=== PATIENT | female | born 1960 | race Caucasian/White ===

== ENCOUNTER 2021-10-03 08:15 | Outpatient (RCR) | payer OTHER, SELFPAY | END 2022-08-28 08:29 | disposition home or self-care (01) | PROVIDERS: Visit Provider Orthopaedic Surgery | DX: M25.511 Pain in right shoulder (principal); Z96.611 Presence of right artificial shoulder joint; Z74.09 Other reduced mobility; Z51.89 Encounter for other specified aftercare | CPT/HCPCS: 97032; 97110; 97140; 97161 ==

== ENCOUNTER 2021-10-08 14:11 | Outpatient (CLI) | payer OTHER, SELFPAY ==
[2021-10-08 21:17] LABS: Chloride* 102 mmol/L (96-114); Sodium* 140 mmol/L (135-149)
[2021-10-08 21:18] LABS: Potassium* 4.4 mmol/L (3.6-5.1)
[2021-10-08 21:20] LABS: Carbon Dioxide* 24 mmol/L (20-32); Estimated Glomerular Filt Rate 64 ml/min
[2021-10-08 21:21] LABS: Blood Urea Nitrogen* 24 mg/dL (7-30); Calcium* 10.4 mg/dL (8.4-10.6); Glucose* 121 mg/dL (60-115)
== END 2021-10-08 14:12 | disposition home or self-care (01) ==
LOC: FRMREF 14:12
PROVIDERS: PCP Family Medicine; Visit Provider Family Medicine
DX: Z01.818 Encounter for other preprocedural examination (principal); I10 Essential (primary) hypertension
CPT/HCPCS: 80048

== ENCOUNTER 2021-10-17 06:00 | Day surgery (SDC) | payer OTHER, SELFPAY ==
[2021-10-17 06:32] VITALS: BMI 59.1
[2021-10-17 06:45] VITALS: BP 144/97; PULSE 89; RESP 16; TEMP 36.2; O2SAT 97
[2021-10-17] MEDS: SODIUM CHLORIDE 0.9 % (FLUSH) 10 ML SYRINGE IVF (06:50)
[2021-10-17] MEDS: LACTATED RINGERS 1000 ML 1,000 ML 100 ML IV (06:50)
[2021-10-17] MEDS: BUPIVACAINE 0.5% 30 ML INJECTION (07:00)
[2021-10-17] MEDS: ETHYL CHLORIDE 1 APPLICATION 1 APPLIC TOPICAL (07:00)
--- NOTE | 2021-10-17 07:13 | SUR.PREOP ---
Patient tearful in room. It's the waiting.. Declines having (Agustin) brought back to room. Railroad Signal Technician provided cool washcloth for patient's neck and Calming aroma therapy patch. Call light within reach. Denies any other needs at this time.
--- NOTE | 2021-10-17 08:14 | PM.ORPRC ---
Procedure Note Date of procedure: 10/17/21 Procedure: PREOPERATIVE DIAGNOSES: 1. Left de Quervain tenosynovitis-recalcitrant to nonoperative management 2. Left wrist ganglion cyst/benign cyst POSTOPERATIVE DIAGNOSES: 1. Left de Quervain tenosynovitis-recalcitrant to nonoperative management NAME OF OPERATION: 1. Left de Quervain open 1st dorsal extensor compartment release with tenosynovectomy SURGEON: Saul Jaimes MD VOCATIONAL TRAINING DIRECTOR: Bob Arguelles PA-C - Of note, an ob gyn physician assistant was critical for this case to aide in patient positioning, limb manipulation, tissue retraction, closure, & splinting. ANESTHESIA: Local anesthetic (via 50:50 mixture of 0.5% bupivacaine plain and 1% lidocaine with epi)-10 mL total plus MAC EBL: Less than 5 mL IMPLANTS: None. TOURNIQUET: None INDICATIONS: The patient is a pleasant, 60-year-old female who has battled left de Quervain tenosynovitis for a number of months. In addition, she has noticed a swelling over the radial side of the left wrist. This is suspicious of a ganglion cyst. They have tried and failed nonoperative management including cortisone injection, bracing, medicines, ice, activity modification, etc. Therefore, surgery was indicated. FINDINGS: Abundant tenosynovitis along the left upper extremity 1st dorsal extensor compartments. Thickening to the 1st compartment sheath. A sub sheath between the APL and EPB was encountered. No ganglion cyst or other benign cystic structure was encountered. Rather, there was extremely thickened 1st dorsal extensor compartment sheath. This was approximately 6 mm thick and felt to likely be the source of the palpable nodule/cyst the patient may have felt. PROCEDURE: Following a thorough discussion of risks, benefits, and alternatives, consent was obtained and the operative extremity was marked. The patient was brought to the operating room and placed supine on the operating table. Induction of anesthesia was achieved. Appropriate time out was performed identifying proper patient, site and procedure. No antibiotics were administered preoperatively as typically a de Quervain release would be done under local anesthetic only, plus the patient's numerous allergies made choosing a particular antibiotic challenging. The left upper extremity was prepped and draped in the appropriate sterile fashion using ChloraPrep prep. A transverse incision was made just proximal to the radial styloid. Sharp incision through skin and blunt dissection through subcutaneous tissue allowed us to identify and protect the crossing neurologic structures including the superficial branch of the radial nerve. The 1st dorsal extensor compartment was released on the more dorsal aspect. EPL and APB tendons were found to be within their own compartments. These were completely released and the tenosynovitis was resected along the tendons. The intervening septum was resected. In addition, the thickened portion of the 1st dorsal extensor compartment was also resected with a tenotomy scissors. No further cystic structure was encountered. We both palpated and had direct visual inspection and did not identify any further cystic structure. At this stage, the wound was thoroughly irrigated with normal saline. Closure performed with 3-0 Vicryl subcutaneous and 4-0 Monocryl for subcuticular closure. Dressings were applied. The patient was awoken from anesthesia and transferred to PACU in stable condition. PLAN: 1. Elevate operative extremity. 2. Ice, acetominphen, ibuprofen, and/or percocet PRN. 3. Follow up with PA visit in 7-10 days for wound check and OT initiation PRN.
--- NOTE | 2021-10-17 08:39 | W.ANESCHARGE ---
Anesthesia Charges Start Date/Time Anesthesia Start Date: 10/17/21 Anesthesia Start Time: 07:41 Stop Date/Time Anesthesia Stop Date: 10/17/21 Anesthesia Stop Time: 08:40 Summary Emergency: No
[2021-10-17 08:40] VITALS: BP 151/93; PULSE 81; RESP 14; TEMP 36.1; O2SAT 95
[2021-10-17 09:00] VITALS: BP 132/84; PULSE 69; RESP 14; O2SAT 98
[2021-10-17 09:15] VITALS: BP 135/65; PULSE 74; RESP 16; O2SAT 98
== END 2021-10-17 09:20 | disposition home or self-care (01) ==
PROVIDERS: PCP Family Medicine; Visit Provider Orthopaedic Surgery Sports Medicine
PROC: (CPT 25000; principal; 2021-10-17 07:30)
DX: M65.4 Radial styloid tenosynovitis [de Quervain] (principal); M67.432 Ganglion, left wrist
CPT/HCPCS: 25116; 1810; J2250; J2405; J2704; J3010; J3490; J7120

== ENCOUNTER 2022-01-08 07:26 | Outpatient (CLI) | payer OTHER, SELFPAY | END 2022-01-08 07:27 | disposition home or self-care (01) | LOC: FRMREF 01-09 10:47 | PROVIDERS: PCP Family Medicine; Visit Provider Family Medicine | DX: N39.0 Urinary tract infection, site not specified (principal); N30.90 Cystitis, unspecified without hematuria; B37.31 Acute candidiasis of vulva and vagina | CPT/HCPCS: 87086; 87186 ==

== ENCOUNTER 2022-04-18 11:13 | Outpatient (CLI) | payer BC, SELFPAY | END 2022-04-18 11:14 | disposition home or self-care (01) | LOC: NFLDREF 04-20 12:27 | PROVIDERS: PCP Family Medicine; Referring Provider Family Medicine; Visit Provider Family Medicine | DX: R82.90 Unspecified abnormal findings in urine (principal); F43.21 Adjustment disorder with depressed mood; E11.9 Type 2 diabetes mellitus without complications | CPT/HCPCS: 87086; 87186 ==

== ENCOUNTER 2022-05-09 07:02 | Outpatient (CLI) | payer BC, SELFPAY | END 2022-05-09 07:03 | disposition home or self-care (01) | LOC: NFLDREF 05-10 11:05 | PROVIDERS: PCP Family Medicine; Referring Provider Family Medicine; Visit Provider Physician Assistant Medical | DX: R30.0 Dysuria (principal); N39.0 Urinary tract infection, site not specified | CPT/HCPCS: 87086; 87186 ==

== ENCOUNTER 2022-07-24 07:00 | Outpatient (CLI) | payer BC, SELFPAY ==
--- NOTE | 2022-07-24 07:15 | CRLHL7_ITS ---
For Patients: As a result of the Cures Act, medical imaging exams and procedure reports are released immediately into your electronic medical record. You may view this report before your referring provider. If you have questions, please contact your health care provider. INDICATION: non toxic single thyroid nodule COMPARISON: 05/09/2021 TECHNIQUE: Brooke scale and color Doppler images were acquired of the thyroid gland. FINDINGS: The right thyroid lobe measures 6.1 x 2.1 x 3.3 cm. The left thyroid lobe measures 4.7 x 1.7 x 1.9 cm. The isthmus measures 4 millimeters. Thyroid echotexture is heterogeneous. No abnormal vascularity. Circumscribed heterogeneously hypoechoic nodule right thyroid lobe is similar measuring 4.2 x 2.1 x 3.1 cm, previously measuring 3.4 x 2.0 x 3.0 cm. Similar left-sided nodules are present including a hypoechoic nodule measuring 2.1 x 1.0 x 1.6 cm, previously measuring 1.6 x 0.9 x 1.7 cm. A 2nd hypoechoic nodule within the left thyroid lobe is unchanged measuring 1.1 x 1.0 x 1.1 cm, previously measuring 1.1 x 0.9 x 1.0 cm. Near isoechoic nodule left thyroid lobe also noted measuring 1.6 x 0.8 x 1.3 cm. IMPRESSION: Multinodular goiter, similar to the prior study. Bilateral nodules are similar. Dictated by Satinder Matta MD @ 07/24/2022 9:38:30 AM (Electronically Signed)
== END 2022-07-24 07:01 | disposition home or self-care (01) ==
LOC: US 07:00
PROVIDERS: PCP Family Medicine; Visit Provider Surgery
DX: E04.1 Nontoxic single thyroid nodule (principal)
CPT/HCPCS: 76536

== ENCOUNTER 2024-12-23 19:02 | Emergency (ER) | payer BC, SELFPAY ==
--- OUTSIDE RECORDS SUMMARY | 2024-12-23 19:06 | XMS_ITS | Clinical Summary ---
Author Organization [facility] Address [address] [place] [id number] Care Team Providers Care Automotive Artist Name Role Phone Pcp, No Primary Care Provider Unavailabl e Allergies Active Allergy Reactions Criticality Noted Date Comments Adhesive Tape-Silicones Contact Dermatitis 04/10 Morphine Vomiting 02/11/2013 Unlisted Allergen (Include Detail In Comments) Rash,Edema 04/23/2018 Nickel Penicillins Other - Describe In Comment Field 02/11/2013 Palpitations Medications losartan (COZAAR) 50 mg tablet Take 1 tablet by mouth once daily. 03/19/2018 Active meloxicam 15 mg tablet Take 1 tablet by mouth once daily. 04/14/2018 Active tiZANidine (ZANAFLEX) 2 mg tabletIndication s:Midline low back pain without sciatica, unspecified chronicity 1 tab up to three times daily, use mostly at night for muscle relaxer. May make you drowsy. 30 tablet 1 04/23/2018 Active VENTOLIN HFA 90 mcg/actuation inhaler 06/23/2018 Active clindamycin (CLEOCIN) 300 mg capsule 04/29/2018 Active predniSONE (DELTASONE) 20 mg tablet 07/07/2018 Active Active Problems Problem Noted Date Diagnosed Date Essential hypertension 04/23/2018 CARPAL TUNNEL - SYNDROME/NOS 02/21/2000 GANGLION, TENDON SHEATH PAIN IN JOINT, HAND CELLULITIS/ABSCESS, FACE PAIN IN JOINT, ANKLE/FOOT RASH Immunizations Immunization Administration Dates Next Due Influenza A (H1N1), Inactivated 12/26/2008 Influenza, IIV3 (Age >=3 years) 11/12/2012 Influenza, IIV4 (=>6mos) MDV 12/19/2016 Tdap 04/02/2017 Family History Medical History Relation Name Comments Genetic Other 1 Heart~Cancer~hi gh blood pressure~Diabetes Genetic Other 2 Heart~Cancer~Hi gh blood pressure~Diabetes Genetic Other 3 Heart~Cancer~Hi gh blood pressure~Diabetes~thyroid, arthritis,glaucoma grandmother Genetic Other 4 Hear- Mother [place] Dt~Svoeyl-Odtbph-fpjflv, Father-Hogkins disease, Mother- skin cancer(melanoma?)~High blood pressure- Brother~Diabetes-Sister~thyroid, arthritis,glaucoma grandmother Relation Name Status Comments Other 1 Other 2 Other 3 Other 4 Social History Tobacco Use Types Packs/Day Years Used Date Smoking Tobacco: Never Smokeless Tobacco: Never Comments No Sex and Gender Information Value Date Recorded Sex Assigned at Not on file Legal Sex Female 6:10 AM SHOW CARD WRITER Gender Identity Not on file Sexual Orientation Not on file Obstetrics History Last Filed Vital Signs Vital Sign Reading Time Taken Comments Blood Pressure 128/80 04/23/2018 12:29 PM CDT Pulse 78 04/23/2018 12:29 PM CDT Temperature 37.1 C (98.7 F) 04/23/2018 12:29 PM CDT Respiratory Rate 18 04/23/2018 12:29 PM CDT Oxygen Saturation 97% 02/11/2013 8:04 PM SHOW CARD WRITER Inhaled Oxygen Concentration - - Weight 163.3 kg (360 lb) 07/17/2018 8:42 AM CDT Height 158.8 cm (5' 2.5) 07/17/2018 8:42 AM CDT Body Mass Index 64.8 07/17/2018 8:42 AM CDT Plan of Treatment Upcoming Encounters Date Type Department Care Team (Late st Contact Info) Description 12/30/2024 3:00 PM SHOW CARD WRITER Nurse/Clinic Staff Only [facility] [address] [phone] Suly Moore, RN [address] [address] 12/30/2024 3:30 PM SHOW CARD WRITER Office Visit [facility] [address] [phone] [place] [facility] [address] [address] Health Maintenance Due Date Last Done Comments Depression screening for age 12+ 1971 HIV for age 15-65 12/24/1974 Hepatitis C screening for ag e 18-79 12/24/1977 Pneumococcal series for age 50+ (1 of 2 - PCV) 12/24/1978 Pap test for age 21-65 11/20/2002 11/21/1999 Colonoscopy through age 75 12/24/2004 Lipids for age 45-75 12/24/2004 Mammogram for age 45-75 12/24/2004 Zoster (shingles) series for age 50+ (1 of 2) 12/24/2009 BMI (ht and wt on same day) for age 18+ 07/18/2019 07/17/2018, 07/08/2018, 04/23/2018 Influenza Vaccine (#1) 2024 7, 11/12/2012 Tetanus booster 04/02/2027 04/02/2017 RSV vaccine for adults or (1 - 1-dose 75+ series) 12/24/2034 Hepatitis B series for 19+ Aged Out N o longer eligible based on patient's age to complete this topic Procedures Procedure Name Priority Date/Time Associated Diagnosis Comments HPV HIGH RISK Routine 11/21/1999 4:58 PM CDT from Last 3 Months or Most Recently Relevant to Health Maintenance Results * HPV THIN PREP (11/21/1999 4:58 PM CDT) HPV RESULTS WNL 11/21/1999 4:58 PM CDT Narrative 07/23/2003 12:02 PM CDT Ordered by an unspecified provider. us Other Clinical Staff MICROBIOLOGY Final Resul t from Last 3 Months or Most Recently Relevant to Health Maintenance Insurance [facility] [employer] * Guarantor: [employer] Account Type Relation to Patient Date of Phone Billing Address [employer] [facility] [address] [place] [address] Care Teams Automotive Artist Relationship Specialty Start Date End Date Pcp, No . PCP - General 09/25/09
--- OUTSIDE RECORDS SUMMARY | 2024-12-23 19:06 | XMS_ITS | Clinical Summary ---
Author Organization [facility] Address [address] [place] [address] Care Team Providers Care Anaesthesiologist Name Role Phone Mohan Jurado Primary Care Provider Allergies Active Allergy Reactions Criticality Noted Date Comments Adhesive Tape Blisters 03/24/2014 PAPER TAPE IS OK Amoxicillin Unknown 03/24/2014 Erythromycin 03/24/2014 Nickel Rash Low 03/24/2014 Penicillins Palpitations,Hives,D ifficult y breathing High 05/10/2011 Vancomycin 03/24/2014 Medications LISINOPRIL PO Take 20 mg by mouth daily Active MELOXICAM PO Take 15 mg by mouth daily Active multivitamin, therapeutic with minerals (MULTI-VITAMIN) TABS Take 1 tablet by mouth daily Active albuterol (PROAIR HFA, PROVENTIL HFA, VENTOLIN HFA) 108 (90 BASE) MCG/ACT inhalerIndicati ons:COUGH Inhale 2 puffs into the lungs every 6 hours Active acetaminophen (TYLENOL) 325 MG tabletIndicatio ns:Posterior tibial tendon dysfunction Take 2 tablets (650 mg) by mouth every 4 hours as needed for fever or other (mild pain) 100 tablet 0 5 Active oxyCODONE (ROXICODONE) 5 MG immediate release tabletIndicatio ns:Posterior tibial tendon dysfunction Take 1-3 tablets (5-15 mg) by mouth every 3 hours as needed for pain or other (Moderate to Severe) 75 tablet 0 5 Active Additional Information Patient not taking.Reported on 08/25/2019 senna-docusate (SENOKOT-S;FABBY COLACE) 8.6-50 MG per tabletIndicatio ns:Posterior tibial tendon dysfunction Take 2 tablets by mouth daily as needed for constipation Take while on oral narcotics to prevent or treat constipation. 30 tablet 0 5 Active Additional Information Patient not taking.Reported on 08/25/2019 hydrOXYzine (ATARAX) 25 MG tabletIndicatio ns:Posterior tibial tendon dysfunction Take 1 tablet (25 mg) by mouth every 6 hours as needed for itching (and nausea, adjuvant pain control) 40 tablet 0 5 Active Additional Information Patient not taking.Reported on 08/25/2019 aspirin EC 325 MG tabletIndicatio ns:Posterior tibial tendon dysfunction Take 1 tablet (325 mg) by mouth daily 30 tablet 3 5 Active Additional Information Patient not taking.Reported on 08/25/2019 montelukast (SINGULAIR) 10 MG tablet Take 10 mg by mouth At Bedtime Active Family History Medical History Relation Comments Cerebrovascular Disease Brother 1 No Known Problems Brother 2 Lymphoma Father Cerebrovascular Disease Maternal Grandmother Asthma Mother Heart Failure Mother Myocardial Infarction Mother Skin Cancer Mother Thyroid Cancer Mother Diabetes Sister 1 Myocardial Infarction Sister 1 Thyroid Disease Sister 1 Breast Cancer Sister 2 Thyroid Disease Sister 2 Thyroid Disease Sister 3 Thyroid Disease Sister 4 Relation Status Comments Brother 1 Brother 2 Father Maternal Grandmother Mother Sister 1 Sister 2 Sister 3 Sister 4 Social History Tobacco Use Types Packs/Day Years Used Date Smoking Tobacco: Never Smokeless Tobacco: Never Alcohol Use Standard Drinks/Week Comments Yes 0 (1 standard drink = 0.6 oz pur e alcohol) RARE - 3 drinks yearly Adolescent Education Answer Date Record ed Getting School Help Needed Not on file 11/11 Comments No Sex and Gender Information Value Date Recorded Sex Assigned at Not on file Legal Sex Female 3:33 AM MATERIALS MGMT TECH Gender Identity Not on file Sexual Orientation Not on file Last Filed Vital Signs Vital Sign Reading Time Taken Comments Blood Pressure 132/78 08/25/2019 9:50 AM CDT Pulse 84 08/25/2019 9:50 AM CDT Temperature 36.8 C (98.2 F) 03/25/2014 1:22 PM MATERIALS MGMT TECH Respiratory Rate 16 03/25/2014 4:45 PM MATERIALS MGMT TECH Oxygen Saturation 99% 03/25/2014 4:45 PM MATERIALS MGMT TECH Inhaled Oxygen Concentration - - Weight 169.1 kg (372 lb 11.2 oz) 08/25/2019 9:50 AM CDT Height 160 cm (5' 3) 08/25/2019 9:50 AM CDT Body Mass Index 66.02 08/25/2019 9:50 AM CDT Plan of Treatment Not on file Insurance [facility] [employer] INSURANCE [place] [id number] Care Teams Anaesthesiologist Relationship Specialty Start Date End Date Mohan Jurado [address] [address] PCP - General Family Practice 03/04/14
--- NOTE | 2024-12-23 19:24 | CRLHL7_ITS ---
For Patients: As a result of the Century Cures Act, medical imaging exams and procedure reports are released immediately into your electronic medical record. You may view this report before your referring provider. If you have questions, please contact your health care provider. INDICATION: Elbow Pain, heard a pop, injury TECHNIQUE: Elbow radiograph 3 view left COMPARISON: None FINDINGS: Bone: No acute fractures or aggressive bone lesions are identified. Joint: The elbow joint is unremarkable. No significant displacement of the anterior or posterior fat pads noted to suggest an effusion. Soft tissue: Unremarkable. No radiopaque foreign bodies are seen. IMPRESSION: 1. No acute osseous injuries are noted. Dictated by: Jaxson Bolanos MD @ 12/23/2024 19:50:10 (Electronically Signed)
[2024-12-23 19:27] VITALS: BP 183/70; PULSE 68; RESP 18; TEMP 36.6; O2SAT 95; BMI 58.5
--- NOTE | 2024-12-23 20:13 | ED.UPPEXIN ---
HPI - Extremity Injury (Upper) General Date Seen: 12/23/24 Chief Complaint: Extremity Pain/Injury, Upper Stated Complaint: L arm injury Time Seen by Provider: 12/23/24 20:13 Source: patient and RN notes reviewed Mode of arrival: ambulatory Limitations: no limitations History of Present Illness HPI narrative: Ching is a very pleasant 63-year-old female with a history of spinal degenerative disease joint replacements hypertension who comes to the emergency room for evaluation regarding left arm pain. Ching states she simply picked up her dog to move it but it weighs about 30 lb. She felt a sudden pop and snap in her left arm. Since that time she has had significant pain in the antecubital fossa and the most proximal aspect of her volar forearm. She notes that she had immediate swelling in this area as well. She has been putting ice on it but it has been getting worse. Any attempt to straighten her arm greatly increases his discomfort and causes some spasm. She has no numbness or tingling. She has not had any injury to this elbow in the past. She has not taken anything yet for discomfort. Patient is not currently on blood thinners. No fever. Related Data Home Medications ?Medication ?Instructions ?Recorded ?Confirmed albuterol sulfate 90 mcg/actuation 2 inh inhalation PRN 08/22/21 06/17/22 aerosol inhaler calcium 600 mg (as 1 cap PO DAILY 08/22/21 06/17/22 carbonate)-vitamin D3 5 mcg (200 unit) capsule multivitamin with minerals 1 tab PO QDAY 08/22/21 06/17/22 (Multiple Vitamin-Minerals tablet) omega 3-yby-bih-fish oil 1,000 mg 1 cap PO QDAY 08/22/21 06/17/22 (120 mg-180 mg) capsule (Fish Oil) montelukast 10 mg tablet 10 mg PO .Bedtime PRN 01/08/22 06/17/22 bran ea PO 03/14/22 06/17/22 Previous Rx's ?Medication ?Instructions ?Recorded atorvastatin 40 mg tablet 40 mg PO .Bedtime #90 tabs 04/19/22 triamterene 37.5 1 cap PO DAILY #90 caps 04/19/22 mg-hydrochlorothiazide 25 mg capsule bupropion HCl 150 mg 24 hr tablet, 150 mg PO QAM #30 tabs 04/26/22 extended release (Wellbutrin XL) meloxicam 15 mg tablet 15 mg PO DAILY #30 tabs 04/30/22 semaglutide 2 mg/dose (8 mg/3 mL) 2 mg (0.75 mL) subcut QWEEK #3 mL 06/10/22 subcutaneous pen injector (Ozempic) trazodone 50 mg tablet 25 - 50 mg (0.5 - 1 x 50 mg) PO 07/11/22 DAILY #30 tabs nirmatrelvir 300 mg (150 mg See Rx Instructions PO .COMPLEX 08/26/22 x2)-ritonavir 100 mg tablet,dose #30 ea pack (Paxlovid) nirmatrelvir 300 mg (150 mg See Rx Instructions PO .COMPLEX 08/27/22 x2)-ritonavir 100 mg tablet,dose #30 ea pack (Paxlovid) Allergies Allergy/AdvReac Type Severity Reaction Status Date / Time adhesive Allergy Intermediate Skin Verified 06/17/22 13:55 blister and it pulls off nickel Allergy Intermediate Rash Verified 06/17/22 13:55 morphine Allergy Mild Vomiting Verified 06/17/22 13:55 penicillin V Allergy Mild Hives Verified 06/17/22 13:55 vancomycin Allergy Mild Hives, Verified 06/17/22 13:55 palpitations amoxicillin Allergy Unknown Noted in Verified 06/17/22 13:55 previous records received lisinopril AdvReac Mild Cough Verified 06/17/22 13:55 Erythromycin Allergy ABD Uncoded 06/17/22 13:55 cramping Review of Systems Status of ROS: Reports: 6 or more systems reviewed and unremarkable except as noted in History and below [facility] Medical History Urinary tract infection ?N39.0 - Urinary tract infection, site not specified (ICD-10) Diabetes type 2, controlled ?E11.9 - Type 2 diabetes mellitus without complications (ICD-10) Dupuytren contracture ?M72.0 - Palmar fascial fibromatosis [Dupuytren] (ICD-10) Surgical History History of selective injection of anesthetic agent around lumbar nerve root ?Z98.890 - Other specified postprocedural states (ICD-10) S/P complete hysterectomy ?Z90.710 - Acquired absence of both cervix and uterus (ICD-10) H/O sinus surgery ?Z98.890 - Other specified postprocedural states (ICD-10) History of right shoulder replacement ?Z96.611 - Presence of right artificial shoulder joint (ICD-10) H/O shoulder surgery ?Z98.890 - Other specified postprocedural states (ICD-10) History of ankle surgery ?Z98.890 - Other specified postprocedural states (ICD-10) Hx of toe surgery ?Z98.890 - Other specified postprocedural states (ICD-10) H/O elbow surgery ?Z98.890 - Other specified postprocedural states (ICD-10) S/P left knee arthroscopy ?Z98.890 - Other specified postprocedural states (ICD-10) H/O bladder repair surgery ?Z98.890 - Other specified postprocedural states (ICD-10) Hx of tonsillectomy ?Z90.89 - Acquired absence of other organs (ICD-10) Status post total knee replacement ?Z96.659 - Presence of unspecified artificial knee joint (ICD-10) History of cholecystectomy ?Z90.49 - Acquired absence of other specified parts of digestive tract (ICD-10) Family History Mother Asthma Coronary artery disease High blood pressure Skin cancer Sister Breast cancer Diabetes Brother Stroke High blood pressure Maternal Grandmother Stroke Father Hodgkin lymphoma Other Colon polyp Social History Narrative: Does not use illicit drugs Non-smoker Rarely consumes alcohol Smoking Status: Never smoker How often do you have a drink containing alcohol: monthly or less AUDIT-C Alcohol total score: 1 Non-prescribed substance use: denies use Exam Narrative: Exam Narrative: Ching is alert and oriented. Able to give me her history. External ears eyes nose clear. No respiratory distress. Examination of her arm shows area of fullness in the bicipital aponeurosis over the pronator teres. I a.m. able to passively extend her arm and supinate. This did cause some spasm in the volar forearm. Palpation also shows tenderness over the biceps. Her body habitus is a that of significant elevated BMI. In comparison to her right arm she does have access area of tissue in the mid aspect of the volar for upper arm. I cannot say for sure that I am feeling biceps that may be ruptured but she is certainly tender here. Distally in her hand sensation and motor is intact. Const: Vital Signs, click to edit/add: Vital Signs - 24 hr 12/23/24 19:27 Temperature 97.9 F Pulse Rate [Pulse Oximeter] 68 Respiratory Rate 18 Blood Pressure [Ri ght Forearm] 183/70 H Pulse Oximetry 95 Oxygen Delivery Me thod Room Air Documenting provider has reviewed patient's vital signs: yes Course Course ED Course: X-ray does not show any bony abnormality. I have a suspicion that she has experienced a partial biceps rupture. Other possibilities include a muscle strain or pull or ligamental injury. No evidence of cellulitis, sepsis, necrotizing fasciitis as this did appear to be injury related. Consultations Consultation #1: I spoke with Marjan SANCHEZ with or the orthopedic group. Did explain at that at the exam is challenging with body habitus but I suspect a biceps injury even though most of her pain is actually in the upper forearm. We will place patient in a splint, use pain medications and have her follow-up with orthopedics tomorrow. Vital Signs Vital signs: Initial Vital Signs Temperature 97.9 F 12/23/24 19:27 Temperature Source Temporal Artery Scan 12/23/24 19:27 Pulse Rate 68 12/23/24 19:27 Respiratory Rate 18 12/23/24 19:27 Blood Pressure 183/70 H 12/23/24 19:27 Blood Pressure Mean 107 H 12/23/24 19:27 Blood Pressure Position Sitting 12/23/24 19:27 Pulse Oximetry 95 12/23/24 19:27 Oxygen Delivery Method Room Air 12/23/24 19:27 Vital Signs Temperature 97.9 F 12/23/24 19:27 Pulse Rate 68 12/23/24 19:27 Respiratory Rate 18 12/23/24 19:27 Blood Pressure 183/70 H 12/23/24 19:27 Pulse Oximetry 95 12/23/24 19:27 Oxygen Delivery Method Room Air 12/23/24 19:27 Temperature 97.9 F 12/23/24 19:27 Pulse Rate 68 12/23/24 19:27 Respiratory Rate 18 12/23/24 19:27 Blood Pressure 183/70 H 12/23/24 19:27 Pulse Oximetry 95 12/23/24 19:27 Oxygen Delivery Method Room Air 12/23/24 19:27 Medications Administered Medications: Discontinued Medications Generic Name Dose Route Start Last Admin Trade Name Krish PRN Reason Stop Dose Admin Ibuprofen 600 mg 12/23/24 20:30 12/23/24 20:36 Ibuprofen 200 Mg Tablet PO 12/23/24 20:31 600 mg ONCE ONE Administration MDM - Extremity Injury (Upper) MDM Narrative Medical decision making narrative: 1. Left arm injury-strongly suspect a biceps muscle injury partial tear. Of course this could be ligamental injury or other muscular tear. At this time patient does request medication we will give her ibuprofen 600 mg in the ED and she may continue this medication every 8 hours at home. I have then sent a prescription for Morley 06/12 25 1 tablet p.o. Q 4-6 hours p.r.n breakthrough. pain . Recommend continue to ice. Recommend following up tomorrow by calling Orthopedics at 0800 hours. 2. Disposition-Ching tells me that her just got home after an illness and hospitalization. She does not know she is able to care for him. I did state that I do think she needs to call family even if they are far away to come home and help her. This is not an injury which will be healing quickly. She does agree with this. I have warned her about the side effects of Morley and that she should not use it with any other sedating medication. Of course for worsening symptoms would have her return to the ER. Medical Records Attestation: I reviewed the patient's medical records. Imaging Data Elbow x-ray: Attestation: I have reviewed the pertinent imaging results. My impression: I do not note any obvious fractures. Radiologist's impression: Bone: No acute fractures or aggressive bone lesions are identified. Joint: The elbow joint is unremarkable. No significant displacement of the anterior or posterior fat pads noted to suggest an effusion. Soft tissue: Unremarkable. No radiopaque foreign bodies are seen. IMPRESSION: 1. No acute osseous injuries are noted. Discharge Plan Discharge Clinical Impression: Injury of left forearm Patient Disposition: Home, Self-Care Condition: Unchanged Additional Instructions: Recommend ibuprofen as needed for discomfort every 8 hours. Your sling and ice as needed. For breakthrough pain Morley which is a combination medication of the narcotic called hydrocodone and Tylenol is available. Please note that this medication can cause constipation so you may want to start a stool softener. In addition this medicine can cause sleepiness and so you would not want to use any other sedating medication, sleep medications. Plan is to follow-up tomorrow or Friday at the orthopedic clinic. Please call [phone] at 0800 hours home and let them know you were seen in the ER, that I spoke with 1 of the PAs and that you should follow up tomorrow morning if at all possible. Return to the ER as needed. Prescriptions: No Action albuterol sulfate 90 mcg/actuation HFA aerosol inhaler 2 inh inhalation PRN Multiple Vitamin-Minerals Tablet 1 tab PO QDAY calcium carbonate-vitamin D3 600 mg-5 mcg (200 unit) capsule 1 cap PO DAILY omega 2-asx-xib-fish oil [Fish Oil] 1,000 mg (120 mg-180 mg) capsule 1 cap PO QDAY montelukast 10 mg tablet 10 mg PO .Bedtime PRN bran Flakes PO triamterene-hydrochlorothiazid 37.5-25 mg capsule 1 cap PO DAILY Qty: 90 3RF atorvastatin 40 mg tablet 40 mg PO .Bedtime Qty: 90 3RF bupropion HCl [Wellbutrin XL] 150 mg tablet extended release 24 hr 150 mg PO QAM Qty: 30 12RF meloxicam 15 mg tablet 15 mg PO DAILY Qty: 30 1RF Ozempic 2 mg/dose (8 mg/3 mL) pen injector 2 mg subcut QWEEK Qty: 3 12RF trazodone 50 mg tablet 25 - 50 mg PO DAILY Qty: 30 3RF Paxlovid 300 mg (150 mg x 2)-100 mg tablets,dose pack See Rx Instructions PO .COMPLEX Qty: 30 0RF Rx Instructions: take TWO 150 mg tablets of nirmatrelvir with ONE 100 mg tablet of ritonavir twice daily for 5 days PO Paxlovid 300 mg (150 mg x 2)-100 mg tablets,dose pack See Rx Instructions PO .COMPLEX Qty: 30 0RF Rx Instructions: take TWO 150 mg tablets of nirmatrelvir with ONE 100 mg tablet of ritonavir twice daily for 5 days PO Follow Up/Referrals: Provider,Not a Local [Primary Care Provider, Family Practice] Stand Alone Forms: [facility] Info Instructions
[2024-12-23] MEDS: IBUPROFEN 200 MG TABLET 600 MG PO (20:36)
== END 2024-12-23 20:49 | disposition home or self-care (01) ==
PROVIDERS: Emergency Provider Family Medicine
DX: S49.92XA Unspecified injury of left shoulder and upper arm, initial encounter (principal); X50.0XXA Overexertion from strenuous movement or load, initial encounter
CPT/HCPCS: 73080; 99283; 99284; A9270

== ENCOUNTER 2024-12-27 08:02 | Outpatient (CLI) | payer BC, SELFPAY ==
--- NOTE | 2024-12-27 08:45 | MR_ITS ---
[address] [address] Phone:?[phone] Fax:?[phone] Referring Physician Information: Fely Fernandez [address] [facility] [address] Phone:?[phone] Fax:?[phone] Patient:Lisa Moctezuma D.O.B:?1960 Sex:?Female Phone:?[phone] [facility] MRN:?[id number] Exam Date:?12/27/2024 EXAM: MRI of the LEFT ELBOW, without contrast CLINICAL INFORMATION: Female, 64 years old, with left elbow pain. INDICATION: Evaluate for distal biceps rupture. PRIOR SURGERY: None reported. PLAIN FILMS: None available. COMPARISONS: No prior MRIs available. TECHNICAL INFORMATION: Using a 1.5T MR scanner and a localizing surface coil: coronals: T1, PD, T2, STIR sagittals: PD, T2 axials: PD, T2 SEDATION: None CONTRAST: None FINDINGS: Elbow joint: Effusion: Physiologic. Ganglion cyst: None. Radiohumeral plica: No pathologic thickening or enlargement. Osteochondral surfaces: No osteochondral abnormality. Loose bodies: No demonstrable loose bodies. Bursae: No pathologic olecranon or bicipitoradial bursal thickening/bursitis. Bones: Humerus: No fracture, osteochondritis dissecans or marrow edema/pathology. Radius: No fracture or marrow edema. Ulna: No fracture or marrow edema. Myotendinous structures: Biceps: Moderate tendinopathy and full-thickness tearing of the distal biceps tendon, with approximately 8 mm of retraction (axial PD series 5 images 5-8 and sagittal PD series 11 image 11). Moderate edema/hemorrhage is present within the antecubital fossa. Triceps: Intact posterior tendinous and anterior muscular insertions and lateral aponeurotic component, without tendinopathy, strain or tear. Brachialis: No strain/tear. Supinator: No strain/tear. Forearm extensors: Mild common extensor tendinopathy, without tear. Forearm flexors: No tear or tendinopathy. Ligaments: Medial ulnar collateral: No sprain or disruption. Radial collateral proper & lateral ulnar collateral: Mild thickening and irregularity of the radial collateral and lateral ulnar collateral ligaments, without tear. Annular: Normal. Nerves: Ulnar: Normal, without appreciable edema, thickening or mass. No anconeus epitrochlearis accessory muscle over the cubital tunnel. Median: Normal. Radial: Normal. IMPRESSION: 1. Moderate tendinopathy and full-thickness tearing of the distal biceps tendon, with 8 mm of retraction and moderate surrounding soft tissue edema/hemorrhage. 2. Mild common extensor tendinopathy without tear. 3. Chronic low-grade sprain of the radial collateral and lateral ulnar collateral ligaments, without tear. 4. No chondromalacia or osteochondral lesion/defect. 5. No fracture or osseous stress reaction. BC Electronically signed on 12/27/2024 11:38:00 AM by Darian Mendoza M.D.
== END 2024-12-27 08:03 | disposition home or self-care (01) ==
PROVIDERS: Visit Provider Physician Assistant Surgical
DX: M25.522 Pain in left elbow (principal); S46.212A Strain of muscle, fascia and tendon of other parts of biceps, left arm, initial encounter
CPT/HCPCS: 73221

== ENCOUNTER 2025-01-03 09:22 | Day surgery (SDC) | payer BC, SELFPAY ==
[2025-01-03] VITALS (7 sets, daily range): BP systolic 122–157; BP diastolic 69–91; PULSE 73–90; RESP 20; TEMP 36.3; O2SAT 94–99; BMI 57.7
[2025-01-03] MEDS: SODIUM CHLORIDE 0.9 % (FLUSH) 10 ML SYRINGE IVF (11:18)
[2025-01-03] MEDS: LACTATED RINGERS 1000 ML 1,000 ML 100 ML IV (11:18)
--- NOTE | 2025-01-03 11:33 | W.PM.H&PU ---
History & Physical Update History & Physical Update H&P Reviewed and patient assessed: No changes noted
--- NOTE | 2025-01-03 13:00 | P.ANES_ITS ---
Anesthesia Charges Start Date/Time Anesthesia Start Date: 01/03/25 Anesthesia Start Time: 13:31 Stop Date/Time Anesthesia Stop Date: 01/03/25 Anesthesia Stop Time: 15:00 Coding CPT Codes CPT Codes: ANESTH BICEPS TENDON REPAIR - 67576 ([id number]) P3 - PATIENT W/SEVERE SYS DISEASE, QK - HOTEL SECURITY OFFICER 2-4 CNCRNT ANES PROC, QX - BELLHOP CAPTAIN SVC W/ MD MED DIRECTION
--- NOTE | 2025-01-03 13:00 | W.ANESCHARGE ---
Anesthesia Charges Start Date/Time Anesthesia Start Date: 01/03/25 Anesthesia Start Time: 13:31 Stop Date/Time Anesthesia Stop Date: 01/03/25 Anesthesia Stop Time: 15:00 Coding CPT Codes CPT Codes: ANESTH BICEPS TENDON REPAIR - 19722 ([id number]) P3 - PATIENT W/SEVERE SYS DISEASE, QK - MEDICAL TECHNOLOGIST PRN 2-4 CNCRNT ANES PROC, QX - MENTAL HEALTH ASSISTANT SVC W/ MD MED DIRECTION
--- NOTE | 2025-01-03 13:00 | W.PM.NB ---
Nerve Block Nerve Block Time Seen by Provider: 12:50 Date Seen: 01/03/25 Type of block requested by surgeon for post-operative analgesia: axillary Side: left Time out performed: Yes Verification of patient name: Yes Verification of date of : Yes Site marking: site marked Name of person performing procedure: Hilton Continuous monitoring Was continuous monitoring of O2 sat, B/P, monitor and storage bin tender, recorded every 15 minutes?: Yes Procedure Checklist: sterile prep, needles and gloves Ultrasound guided. Images saved: Yes Medications given in 5ml increments after negative aspiration: Ropivicaine %: 0.5 mL: 30 Needle gauge: 22 Patient tolerated procedure well: Yes Additional comments: Needle noted adjacent to nerve Block Charges Block Charge (with Pro Fee): Brachial Plexus Use of Ultrasound Machine for Block: Yes- US Guidance/pain block
--- NOTE | 2025-01-03 14:05 | SUR.OPER ---
PATIENT QUESTIONS ANSWERED SATISFACTORILY PREOPERATIVELY. PATIENT BROUGHT TO OR #3 PER CART FOLLOWING THE BLOCK. Patient positioned supine on OR #3 bed for.? Perioperative team placed the right arm an arm board. Left arm elevated on an IV pole in a padded strap. Final approval of positioning by surgeon.
--- NOTE | 2025-01-03 14:36 | P.ORPRC_ITS ---
Procedure Note Date of procedure: 01/03/25 Procedure: PREOPERATIVE DIAGNOSIS: 1. Left distal biceps rupture, acute POSTOPERATIVE DIAGNOSIS: 1. Left distal biceps rupture, acute PROCEDURE: 1. Left open distal biceps repair 2. Intraoperative fluoroscopy operated and interpreted by Saul Jaimes M.D. for intraoperative evaluation of radial button positioning. Fluoroscopy time was 7 seconds. SURGEON: Saul Jaimes MD ORDAINED MINISTER: Olivier WHITING (Of note, use of an legal support assistant was critical for this case to aid in patient positioning, tissue retraction, nerve protection, arm positioning, suture management, and closure as well as splint application.) ANESTHESIA: Supraclavicular block + MAC EBL: 25 mL TOURNIQUET: 35 minutes at 250 torr IMPLANTS: Arthrex tension slide distal Biceps Button with Peek interference screw 7 x 10mm. COMPLICATIONS: None evident INDICATIONS FOR PROCEDURE: The patient is a pleasant 64-year-old female, right hand dominant. They sustained an injury to the left distal biceps roughly 2 weeks ago. Upon evaluation, they were found to have a positive hook sign as well as positive MRI showing for cm retraction of the distal stump. Given the patient's use of this extremity, recommendation was made for surgery. DESCRIPTION OF PROCEDURE: Following a thorough discussion of the risks, benefits and alternatives, consent was obtained and the left forearm was marked. The patient was brought to the operating room, placed supine on the operating table. Induction of general anesthesia was undertaken after a supraclavicular block was administered in the preop holding. Appropriate time out was performed to identify proper patient, site and procedure. The operative upper extremity was prepped and draped in the appropriate sterile fashion using ChloraPrep prep. The limb was exsanguinated and the tourniquet inflated to 250 Torr after 3 g IV Ancef was administered within 1 hour of incision preoperatively. A transverse incision was made in line with the antecubital fossa crease approximately 4 cm distal to the crease itself. Sharp incision through the skin and blunt dissection through the subcutaneous tissue allowed protection of crossing neurologic and vascular structures. Blunt dissection was taken deep for identification of the radial tuberosity. Additionally, the lateral antebrachial cutaneous nerve was identified and protected throughout the case. We then turned our attention to retrieving the biceps stump. The stump was near its insertion site, but was retracted minimally. The stump was assessed, and found to have good integrity. It was whipstitched utilizing a #2 FiberLoop suture to get a strong hold on the tendon. The tendon diameter was measured and found to be a diameter of 7mm. We brought the tendon back down through the typical deeper planes and deep to crossing vascularity to eventually reattach to the bicipital tuberosity. The insertion site was then prepared using a Joker elevator and rongeur. A guide pin was utilized bicortical, and an 8 mm reamer was then used unicortically after confirming on C-arm fluoroscopic imaging to be in appropriate position at the radial tuberosity. The suture tails were then passed through the tension slide button and the button passed through the bicortical tunnel, and flipped. It was confirmed on C-arm fluoroscopic imaging to be in the proper position and flipped completely and apposed against bone. We then utilized this tension slide manner to reapproximate the tendon to the reamed hole. Once the tendon was dunked, with the elbow flexed to roughly 90 degrees, we passed one of the limbs of the suture through the tenodesis button and secured the button. Thereafter, we shuttled 1 of the suture limbs through the tendon from a previously prepared show suture at the 10 mm julio cesar. This suture passed through smoothly and then was tied as a secondary stabilization to the tension slide button with a knot pusher and 5 alternating half hitches with post switching to secure it. The tourniquet was deflated and hemostasis achieved. A thorough irrigation with normal saline was then performed followed by closure with 2-0 Vicryl and 4-0 Monocryl in subcutaneous and subcuticular layers. Dressings were applied. (A posterior splint was not applied given her arm size. Instead, a sling was applied). Patient awoke from anesthesia and was transferred to the Post- Anesthesia Care Unit in stable condition. PLAN: 1. Ice and elevate operative upper extremity. 2. Finger range of motion as tolerated. 3. Follow up with PA visit in 10 days. Patient may remove the sling after just 2 days and begin active range of motion operative elbow and forearm as tolerated. Lift nothing more than a coffee cup x 6 weeks. 4. Ibuprofen, Tylenol, and/or Oxycodone for pain as needed.
--- NOTE | 2025-01-03 15:00 | P.ANES_ITS ---
Anesthesia Charges Start Date/Time Anesthesia Start Date: 01/03/25 Anesthesia Start Time: 13:31 Stop Date/Time Anesthesia Stop Date: 01/03/25 Anesthesia Stop Time: 15:00 Coding CPT Codes CPT Codes: ANESTH BICEPS TENDON REPAIR - 54016 ([id number]) P3 - PATIENT W/SEVERE SYS DISEASE, QK - THERMAL CUTTING TRACER MACHINE OPERATOR 2-4 CNCRNT ANES PROC, QX - MARKETING WRITER SVC W/ MD MED DIRECTION
--- NOTE | 2025-01-03 15:00 | W.ANESCHARGE ---
Anesthesia Charges Start Date/Time Anesthesia Start Date: 01/03/25 Anesthesia Start Time: 13:31 Stop Date/Time Anesthesia Stop Date: 01/03/25 Anesthesia Stop Time: 15:00 Coding CPT Codes CPT Codes: ANESTH BICEPS TENDON REPAIR - 46645 ([id number]) P3 - PATIENT W/SEVERE SYS DISEASE, QK - END USER CONSULTANT 2-4 CNCRNT ANES PROC, QX - INSPECTOR PLUMBING SVC W/ MD MED DIRECTION
[2025-01-03] MEDS: IBUPROFEN 200 MG TABLET 600 MG PO (15:12)
[2025-01-03] MEDS: ACETAMINOPHEN 500 MG TABLET PO (15:12)
== END 2025-01-03 16:15 | disposition home or self-care (01) ==
LOC: OR 09:24
PROVIDERS: Visit Provider Orthopaedic Surgery Sports Medicine
PROC: (CPT 24341; principal; 2025-01-03 12:00)
DX: S46.212A Strain of muscle, fascia and tendon of other parts of biceps, left arm, initial encounter (principal); G89.18 Other acute postprocedural pain; E11.9 Type 2 diabetes mellitus without complications; Z79.84 Long term (current) use of oral hypoglycemic drugs; E66.01 Morbid (severe) obesity due to excess calories; Z68.43 Body mass index [BMI] 50.0-59.9, adult
CPT/HCPCS: 24341; 01716; 64415; 73070; 76000; 76942; 82962; A9270; C1713; J0690; J1100; J2405; J2704; J2795; J7120